=== PATIENT | female | born 1955 | race Caucasian/White ===

== ENCOUNTER 2018-12-15 15:28 | Emergency (ER) | payer BC, SELFPAY ==
--- NOTE | 2018-12-15 15:30 | DI.RAD.S_ITS ---
PROCEDURE: XR WRIST LT MIN 3V INDICATIONS: injury swelling TECHNIQUE: 4 views of the wrist were acquired. COMPARISON: None. FINDINGS: Bones: No displaced fracture or dislocation is identified involving the osseous structures of the left wrist. No suspicious osseous lesions are present. There are mild degenerative changes noted involving the basal joint of the thumb. The bone mineralization is mildly decreased. Soft tissues: No suspicious soft tissue calcifications. No significant soft tissue swelling is appreciated. IMPRESSION: No acute osseous abnormality of the left wrist. Dictated by: Thuan Peck M.D. on 12/15/2018 at 14:47 Approved by: Thuan Peck M.D. on 12/15/2018 at 14:49
[2018-12-15 15:42] VITALS: BP 140/90; PULSE 71; RESP 16; TEMP 36.6; O2SAT 100; BMI 21.4
--- NOTE | 2018-12-15 15:47 | PC.NURSE ---
pt c/o left wrist pain, swelling. slipped and fell on the ice this am causing injury.
--- NOTE | 2018-12-15 16:50 | ED_ITS ---
HPI - Extremity Injury (Upper) <Sangeeta Deleon PA-C - Last Filed: 12/15/18 21:49> General Chief Complaint: Extremity Injury, Upper Stated Complaint: LT WRIST INJURY Time Seen by Provider: 12/15/18 16:50 Source: patient Mode of arrival: ambulatory Limitations: no limitations History of Present Illness HPI narrative: This 63-year-old female slipped on ice in her steep driveway and fell on outstretched left arm and wrist. She denies any other injury aside from slight soreness in the shoulder, but states this is very minor and no trouble with movement. She did not hit her head or pass out. It is been very painful to move the wrist since so came in due to concern for fracture. She does not have pain in the hand. She is right handed. Related Data Home Medications Medication Instructions Recorded Confirmed Probiotic 1 cap PO DAILY 12/15/18 12/15/18 Vitamins 1 dose PO DAILY 12/15/18 12/15/18 levothyroxine 100 mcg PO DAILY 12/15/18 12/15/18 Allergies Allergy/AdvReac Type Severity Reaction Status Date / Time morphine Allergy Verified 12/15/18 15:42 Review of Systems <Sangeeta Deleon PA-C - Last Filed: 12/15/18 21:49> Review of Systems ROS Unobtainable: All systems reviewed & are unremarkable except as noted in HPI and below PFSH <Sangeeta Deleon PA-C - Last Filed: 12/15/18 21:49> Medical History Hypothyroidism (acquired) (Chronic) Interstitial cystitis (Chronic) Diverticulitis (Resolved) Surgical History History of urinary diversion procedure (Resolved) Family History Other Family history non-contributory Social History Smoking Status: Current every day smoker Family History Other Family history non-contributory Social History Smoking Status: Current every day smoker Comment: uses vaporizer pen Exam <Sangeeta Deleon PA-C - Last Filed: 12/15/18 21:49> Narrative Exam Narrative: GENERAL APPEARANCE: Patient sitting comfortably, in no distress. LUNGS: Clear to auscultation bilaterally. HEART: Rate and rhythm regular without murmur, normal S1 and S2, no S3 or S4. MUSCULOSKELETAL: No tenderness over the L. upper or forearm. Left wrist trace effusion. Tender all across the wrist joint. No tenderness in the upper arm, elbow, or forearm. No tenderness over the metacarpals or fingers. She has limited range of motion of the left wrist in all meier secondary to tenderness. Full range of motion in the fingers. First Coat Sander strength is intact. NEUROVASCULAR: Left hand fingers are warm and pink, sensation is grossly intact Initial Vital Signs Initial Vital Signs: Vital Signs Temperature 97.9 F 12/15/18 15:42 Pulse Rate 71 12/15/18 15:42 Respiratory Rate 16 12/15/18 15:42 Blood Pressure 140/90 12/15/18 15:42 Pulse Oximetry 100 12/15/18 15:42 <DO Nhan Gomez Last Filed: 12/22/18 07:46> Initial Vital Signs Initial Vital Signs: Vital Signs Temperature 97.9 F 12/15/18 15:42 Pulse Rate 71 12/15/18 15:42 Respiratory Rate 16 12/15/18 15:42 Blood Pressure 140/90 12/15/18 15:42 Pulse Oximetry 100 12/15/18 15:42 Course <Sangeeta Deleon PA-C - Last Filed: 12/15/18 21:49> Orders Ordered: ED Orders 12/15/18 15:30 XR wrist LT min 3V Stat Vital Signs - 8 hr 12/15/18 15:42 12/15/18 17:20 Temperature 97.9 F Pulse Rate 71 72 Respiratory Rate 16 18 Blood Pressure 140/90 Blood Pressure [Right Arm] 120/72 Pulse Oximetry 100 99 <DO Nhan Gomez Last Filed: 12/22/18 07:46> Orders Ordered: ED Orders 12/15/18 15:30 XR wrist LT min 3V Stat Vital Signs - 8 hr 12/15/18 15:42 12/15/18 17:20 Temperature 97.9 F Pulse Rate 71 72 Respiratory Rate 16 18 Blood Pressure 140/90 Blood Pressure [Right Arm] 120/72 Pulse Oximetry 100 99 Discharge Plan Departure Patient Disposition: Home Clinical Impression: Contusion of left wrist, initial encounter Discharge Date/Time: 12/15/18 17:43 Interventions: ED Discharge Assessment Last Done: 12/15/18 17:42 Instructions: DI for Wrist Sprain Activity Restrictions/Additional Instructions: Please keep your wrist in the immobilizer splint 02/06 to protect and help healing. There was no broken bone found on your x-ray today, however as we talked about x-rays should be repeated next week if you are not getting better. please take Aleve [id number] 1 tablet twice daily for the next few days, then as needed. Please stay off work for the next day or 2 until you determine whether you can drive with the splint on, then you can determine when to return from there. Prescriptions: No Action levothyroxine 100 mcg tablet 100 mcg PO DAILY RF: 0 Probiotic 1 cap PO DAILY RF: 0 Vitamins 1 dose PO DAILY RF: 0 Referrals: Eve Mendenhall ARNP [Primary Care Provider] - <Kt Steve DO - Last Filed: 12/22/18 07:46> Cosign ED Attending Bianca Attestation: I was immediately available in the department for consultation. Documentation has been reviewed. I agree with assessment and plan.
[2018-12-15 17:20] VITALS: BP 120/72; PULSE 72; RESP 18; O2SAT 99
== END 2018-12-15 17:43 | disposition home or self-care (01) ==
PROVIDERS: Emergency Provider Internal Medicine; Family Provider Nurse Practitioner Gerontology; PCP Nurse Practitioner Gerontology
DX: S60.212A Contusion of left wrist, initial encounter (principal); W01.0XXA Fall on same level from slipping, tripping and stumbling without subsequent striking against object, initial encounter
CPT/HCPCS: 73110; 99282; 99283